=== PATIENT | male | born 1990 | race Caucasian/White ===

== ENCOUNTER 2018-02-16 17:34 | Emergency (ER) | payer OTHER ==
[~2018-02-16] VITALS: Ht 177.8 cm; Wt 72.6 kg
[2018-02-16 17:37] VITALS: BP 138/92
[2018-02-16] MEDS ORDERED: AMOXICILLIN875 M1 PO (17:41)
[2018-02-16] MEDS ORDERED: HYDROCODON-ACE1 EAC2 PO (17:41)
--- NOTE | 2018-02-16 17:42 | ED THROAT/DENTAL COMPLAINT ---
History of Present Illness General Chief Complaint: Sore Throat, Dental Pain Stated Complaint: DENTAL PAIN Source: patient Exam Limitations: no limitations Vital Signs & Intake/Output Vital Signs & Intake/Output Vital Signs Date Time Temp Pulse Resp B/P B/P Pulse O2 O2 Flow FiO2 Mean Ox Delivery Rate 02/16 1737 98.0 76 18 138/92 98 Room Air Allergies Coded Allergies: NO KNOWN ALLERGIES (11/11/11) Reconcile Medications Amoxicillin 875 MG TABLET 1 TAB PO BID TOOTH INFECTION Hydrocodone/Acetaminophen (Hydrocodon-Acetaminophen 5-325) 5 MG-325 MG TABLET 1-2 TAB PO Q4-6 PRN PRN PAIN Triage Note: 27 YO MALE TO TRIAGE C/O PAIN TO L SIDE OF FACE/JAW. PT UNSURE IF HIS TOOTH IS HURTING HIM. PA IN FOR EVAL, STATES HS BEEN TAKING MOTRIN WITHOUT RELIEF Triage Nurses Notes Reviewed? yes Onset: Abrupt Duration: day(s):, constant Timing: recent history Injury Environment: home Severity: mild, moderate No Modifying Factors: none HPI: 27-year-old male comes into the emergency room and complains of left sided facial pain has been going on for days. Sharp throbbing. Continuous. Pain to his upper gums and lower gums on the left side. Denies any ear pain. Denies any sore throat. Denies any fever chills. Taking ibuprofen at home with no relief. (Obey Meade) Past History Travel History Traveled to [place] past 21 day No Medical History Any Pertinent Medical History? 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 No (Obey Meade) Review of Systems Review of Systems Constitutional: Reports: no symptoms. EENTM: Reports: see HPI. Respiratory: Reports: no symptoms. Cardiovascular: Reports: no symptoms. GI: Reports: no symptoms. Genitourinary: Reports: no symptoms. Musculoskeletal: Reports: no symptoms. Skin: Reports: no symptoms. Neurological/Psychological: Reports: no symptoms. Hematologic/Endocrine: Reports: no symptoms. Immunologic/Allergic: Reports: no symptoms. All Other Systems: Reviewed and Negative (Obey Meade) Physical Exam Physical Exam General Appearance: well developed/nourished, alert, awake Head: atraumatic, normal appearance Eyes: Bilateral: normal appearance. Nose: normal inspection Mouth/Throat: No evidence of abscess, tenderness to left upper and left lower molars, multiple chipped teeth, teeth are yellow, Neck: normal inspection Cardiovascular/Respiratory: no respiratory distress Back: normal inspection Neurologic/Psych: awake, alert Skin: intact, normal color Core Measures ACS in differential dx? No Sepsis Present: No Sepsis Focused Exam Completed? No (Obey Meade) Progress Differential Diagnosis: aspirated tooth, carious tooth, epiglottitis, Ludwigs angina, meningitis, odontogenic abscess, edmundo-tonsillar abscess, pharyngeal for. body, stomatitis/gingivitis, strep pharyngitis, tooth fracture Plan of Care: 02/16/2018 7:07:56 PM Patient clinically looks well. Patient is in no apparent distress. Nontoxic- appearing. Patient instructed to follow-up with dentist. No evidence of abscess. (Obey Meade) Departure Departure Disposition: HOME OR SELF CARE Condition: Stable Clinical Impression Primary Impression: Dental infection Referrals: Damaris Early Additional Instructions: Take Vicodin and amoxicillin as prescribed. Follow-up with primary care doctor. Return if any concerns worsening symptoms. Please go over all results of today's visit with your primary care doctor. Contact your primary care doctor to let them know you were here in the emergency room. There may be nonspecific findings which may not be related to your visit today here in the emergency room but may require further evaluation and chronic monitoring by your primary care doctor. If you had a laceration today the chance of foreign body always remains. You should follow-up with your primary care doctor for recheck in 3-5 days for a wound check. If you had an x-ray done there is a chance that a fracture could have been missed on initial read and you should follow-up with your primary care doctor for repeat x-rays if symptoms persist. If your blood pressure was elevated here in the emergency room please have rechecked by [facility] primary care doctor within the next 48. If you were prescribed a narcotic here in the emergency room or any type of controlled substances you're not allowed to drive while taking this medication or operate any type of heavy machinery. Narcotics can make you feel lightheaded dizziness nausea and can cause constipation. You may need to fruit or nut picker a stool softener. Thank you for choosing [facility] emergency room. Please return to the emergency room immediately if you have any other concerns worsening of symptoms. Departure Forms: Customer Survey General Discharge Information Prescriptions: Current Visit Scripts Hydrocodone/Acetaminophen (Hydrocodon-Acetaminophen 5-325) 1-2 TAB PO Q4-6 PRN PRN PAIN #10 TAB Amoxicillin 1 TAB PO BID #14 TAB (Obey Meade) PA/TOBACCO GRADER Co-Sign Statement Statement: ED Attending supervision documentation- [] I saw and evaluated the patient. I have also reviewed all the pertinent lab results and diagnostic results. I agree with the findings and the plan of care as documented in the PA's/TOBACCO GRADER's documentation. [x] I have reviewed the ED Record and agree with the PA's/TOBACCO GRADER's documentation. [] Additions or exceptions (if any) to the PAs/TOBACCO GRADER's note and plan are summarized below: [] (Buzz Goldstein DO)
== END 2018-02-16 17:46 ==
LOC: ERH 17:34
DX: K04.7 Periapical abscess without sinus (principal)